=== PATIENT | female | born 2005 | race Hispanic/Latino ===

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

== ENCOUNTER 2023-10-07 11:03 | Emergency (ER) | payer BC, MEDICAID ==
[~2023-10-07] VITALS: Ht 167.6 cm; Wt 90.7 kg
[~2023-10-07 11:03] MED LIST changes: -ACET-2079 PO; +PREN1TAB80 PO
[2023-10-07] MEDS: CEPHALEXIN 500 MG CAPSULE PO ONE (14:02)
[2023-10-07] MEDS: TETANUS/DIPHTHERIA TOXOID [ADULT] 0.5 ML VIAL IM ONE (14:07)
[2023-10-07 17:13] VITALS: BP 132/78; PULSE 78; RESP 18; O2SAT 98
== END 2023-10-07 17:14 | disposition home or self-care (01) ==
LOC: EDH 11:03
DX: S61.215A Laceration without foreign body of left ring finger without damage to nail, initial encounter (principal); Z90.49 Acquired absence of other specified parts of digestive tract; Z88.6 Allergy status to analgesic agent; Z90.721 Acquired absence of ovaries, unilateral; W26.0XXA Contact with knife, initial encounter; Y93.G3 Activity, cooking and baking; Y92.89 Other specified places as the place of occurrence of the external cause; Y99.8 Other external cause status
CPT/HCPCS: 12001; 90471; 90714